=== PATIENT | male | born 1970 | race Caucasian/White ===

== ENCOUNTER → 2017-01-29 | Outpatient (CLI) | payer OTHER ==
[~2017-01-29] MED LIST: SERT50TA PO
[2017-01-29 17:41] LABS: BASO % 0.1 %; BASO ABS # 0.01 K/uL (0-0.2); COMPLETE YES; EOS % 1.4 %; HEMATOCRIT 43.7 % (42-52); IG% 0.2 %; LYMPH % 18.6 %; LYMPH ABS # 1.83 K/uL (1.2-3.4); MEAN CELL VOLUME 79.9 fL (80-100); MEAN CORPUSCULAR HEMOGLOBIN 28.7 pg (25-34); MEAN CORPUSCULAR HGB CONC 35.9 g/dl (32-36); MEAN PLATELET VOLUME 9.8 fL (7.4-10.4); MONO % 7.9 %; NEUT % 71.8 %; PLATELET COUNT 222 K/uL (130-400); RED BLOOD COUNT 5.47 M/uL (4.7-6.1); WHITE BLOOD COUNT 9.85 K/uL (4.8-10.8)
== END | disposition home or self-care (01) ==
LOC: C.LABPVFM 14:45
PROVIDERS: ATTEND Nurse Practitioner
DX: M25.572 Pain in left ankle and joints of left foot (principal)

== ENCOUNTER → 2017-05-06 | Outpatient (CLI) | payer OTHER ==
[2017-05-06 13:02] LABS: BLOOD UREA NITROGEN 15 mg/dl (7-18); BUN/CREATININE RATIO 12.1 (10-20); CALCIUM 9.1 mg/dl (8.5-10.1); CARBON DIOXIDE 27 mmol/L (21-32); CHLORIDE 110 mmol/L (98-107); GLUCOSE 102 mg/dl (70-99); POTASSIUM 4.4 mmol/L (3.5-5.1); SODIUM 142 mmol/L (136-145)
[2017-05-06 13:05] LABS: CHOLESTEROL 146 mg/dl (0-200); CHOLESTEROL/HDL RATIO 2.9; HDL CHOLESTEROL 50 mg/dl; LDL CHOLESTEROL CALCULATED 71 mg/dl; TRIGLYCERIDES 126 mg/dl (0-150); VERY LOW DENSITY LIPOPROT CALC 25 mg/dl
== END | disposition home or self-care (01) ==
LOC: C.LABPVFM 09:36
PROVIDERS: ATTEND Nurse Practitioner
DX: I10 Essential (primary) hypertension (principal)

== ENCOUNTER → 2017-06-03 | Outpatient (CLI) | payer OTHER | END | disposition home or self-care (01) | LOC: C.LABSPEC 16:47 | PROVIDERS: ATTEND Physician Assistant | DX: L30.9 Dermatitis, unspecified (principal) ==

== ENCOUNTER → 2017-08-16 | Outpatient (CLI) | payer OTHER ==
[2017-08-16 13:21] LABS: BLOOD UREA NITROGEN 17 mg/dl (7-18); BUN/CREATININE RATIO 13.5 (10-20); CALCIUM 9.6 mg/dl (8.5-10.1); CARBON DIOXIDE 27 mmol/L (21-32); CHLORIDE 109 mmol/L (98-107); CREATININE 1.24 mg/dl (0.60-1.40); GLUCOSE 105 mg/dl (70-99); SODIUM 144 mmol/L (136-145)
== END | disposition home or self-care (01) ==
LOC: C.LABPVFM 08:50
PROVIDERS: ATTEND Nurse Practitioner Family
DX: I10 Essential (primary) hypertension (principal)

== ENCOUNTER → 2017-08-30 | Outpatient (CLI) | payer OTHER ==
[2017-08-30 13:18] LABS: ESTIMATED AVERAGE GLUCOSE 97 mg/dl; HA1C FLAG Normal (Normal)
[2017-08-30 13:54] LABS: BLOOD UREA NITROGEN 15 mg/dl (7-18); BUN/CREATININE RATIO 12.7 (10-20); CALCIUM 9.9 mg/dl (8.5-10.1); CARBON DIOXIDE 25 mmol/L (21-32); CHLORIDE 105 mmol/L (98-107); CREATININE 1.14 mg/dl (0.60-1.40); GLUCOSE 120 mg/dl (70-99); POTASSIUM 4.3 mmol/L (3.5-5.1); SODIUM 142 mmol/L (136-145)
== END | disposition home or self-care (01) ==
LOC: C.LABPVFM 08:23
PROVIDERS: ATTEND Nurse Practitioner Family
DX: I10 Essential (primary) hypertension (principal)

== ENCOUNTER → 2017-12-03 | Outpatient (CLI) | payer OTHER ==
[2017-12-03 12:53] LABS: ALBUMIN 3.9 gm/dl (3.4-5.0); BLOOD UREA NITROGEN 19 mg/dl (7-18); CALCIUM 9.6 mg/dl (8.5-10.1); CARBON DIOXIDE 30 mmol/L (21-32); CREATININE 1.31 mg/dl (0.60-1.40); GLUCOSE 102 mg/dl (70-99); SODIUM 138 mmol/L (136-145)
[2017-12-03 12:54] LABS: PHOSPHORUS 2.7 mg/dl (2.5-4.9)
== END | disposition home or self-care (01) ==
LOC: C.LABPVFM 08:58
PROVIDERS: ATTEND Internal Medicine Nephrology
DX: I10 Essential (primary) hypertension (principal)

== ENCOUNTER 2024-10-06 05:09 | Observation (INO) ==
--- NOTE | 2024-09-07 15:50 | PAT Medication Instructions ---
Medication Instructions Date of Service September 07, 2024 Home Medications Medication Instructions Recorded losartan 100 1 tab PO QAM #90 tabs 03/09/24 mg-hydrochlorothiazide 25 mg tablet bisoprolol fumarate 5 mg tablet 5 mg PO QAM #90 tabs 04/12/24 losartan 100 mg-hydrochlorothiazide 25 mg tablet 1 tab PO QAM bisoprolol fumarate 5 mg tablet 5 mg PO QAM allopurinol 100 mg tablet 100 mg PO QAM DO NOT take the morning of surgery losartan 100 mg-hydrochlorothiazide 25 mg tablet 1 tab PO QAM Take morning of surgery With a small sip of water, OTHERWISE NOTHING TO EAT OR DRINK AFTER MIDNIGHT: bisoprolol fumarate 5 mg tablet 5 mg PO QAM allopurinol 100 mg tablet 100 mg PO QAM Other Notes If you have any questions please call us at [phone] or [phone] or [phone] or [phone]
--- NOTE | 2024-09-18 10:13 | Anesthesiology Consultation ---
Date of Service September 18, 2024 Assessment & Plan (1) Encounter for pre-operative examination: - Infectious disease screening: Per assessment on 09/18/24- No known recent infectious disease contacts or current infectious disease symptoms. - Outpatient joint assessment: Pt currently scheduled for inpatient pathway. If surgeon requests review for outpatient joint pathway, patient is an acceptable candidate for outpatient joint program from anesthesia standpoint pending surgeon's office assessment that patient is motivated, has good support and completes [facility] preop requirements. - Check BSG DOS (Preop labs note elevated glucose at 168. No reported hx of diabetes/prediabetes by patient. Last A1C 09/16/23 was 5.5%. Will update BSG DOS) - Nephrology visit (09/19/24): "Colten Farley is a 53 year-old male with hypertension, predominately diastolic, stage II hypertension. He has a normal serum creatinine. Risk factors include a history of mild EMILIANO, OA/DJD-msk pain and stress. He has a history of gout. Symptoms controlled with prophylactic allopurinol. After prior discussion regarding blood pressure guidelines from the [facility] as well as AHA/ACC recommendations, a reasonable goal of <130/80 mmHg was established. He is tolerating current therapy well. BP slightly elevated in clinic but better at home. Discussed options for switching bisoprolol to metoprolol or carvedilol or increasing the dose. Volume status acceptable. Advised to monitor at home. Requested follow up if home readings are not controlled. Colten will continue 25 mg HCTZ in addition to Losartan 100 mg. He has been tolerating the medication well. Bisoprolol will be continued at 5 mg daily. No changes today. Home monitoring encouraged. Update renal profile in 6 months. There is no recent evaluation for LVH. EKG in 2018 demonstrated NSR with QTc 498. Screening for proteinuria completed today was negative. Aspirin 81 mg daily may also be considered for risk factor modification. RTC in 6 months." Chart Review Chart Review: Acceptable Risk for Surgery and Patient seen in Pre Admission Testing Teaching & Discussion Pre-Anesthesia Teaching/Discussion Notes: Instructed NPO after midnight before surgery,except medications with 15 cc of water. Medication instructions provided according to the PAT guidelines. History Surgery Operation Date: 10/06/24 10:40 Proposed Procedures p Left Total Hip Arthroplasty - Solitario Kim MD Height/Weight Height: 5 ft 11 in Weight: 102.6 kg Allergies Allergy/AdvReac Type Severity Reaction Status Date / Time Calcium Channel Blocking Allergy Severe leg Verified 09/07/24 07:55 Agent Dilt swellling Iodinated Contrast Media Allergy Intermediate Hives Verified 09/07/24 07:55 aspirin Allergy Mild childhood Verified 09/07/24 07:55 - pt unsure Medications Home Medications Medication Instructions Recorded Confirmed Last Taken losartan 100 1 tab PO QAM #90 tabs 03/09/24 09/19/24 Unknown mg-hydrochlorothiazide 25 mg tablet bisoprolol fumarate 5 mg tablet 5 mg PO QAM #90 tabs 04/12/24 09/19/24 Unknown allopurinol 100 mg tablet 100 mg PO QAM 09/07/24 09/19/24 Unknown Wheeled Walker #1 ea 09/18/24 09/19/24 Unknown Past Medical History Medical History Arthritis of left hip Benign essential hypertension Degenerative arthritis of knee, bilateral Degenerative joint disease of left hip History of asthma No recent issues, no current inhaler History of COVID-19 (05/2023) "Cold symptoms" > resolved Hx of colonic polyps Hx of gout Spinal stenosis Lumbar Exercise / Class Metabolic Activity II 4-5 Yardwork/Stairs/Walk up hill (one FS: no CP, no SOB) Past Family History Family History Other No family history of adverse response to anesthesia Denies family history of Ovarian cancer Prostate cancer Diabetes Myocardial infarction Breast cancer Congenital kidney disease Colorectal cancer Hypertension Past Surgical History Surgical History History of nasal septoplasty Age 17 Hx of colonoscopy with polypectomy Colonoscopy, [facility] (12/16/23) [place] teeth extracted Past Anesthesia History No Hx of Anesthesia Complications and No Family Hx of Anesthesia Complications History of PONV No Hx of PONV and No Hx of Motion Sickness Social History Smoking Status: Never smoker Do You Dip or Chew Tobacco: No Hx Alcohol Use: Yes Alcohol type: beer and hard liquor alcohol intake frequency: a few times a week Hx Substance Use: No substance use type: does not use Last Used Substance Other:: marijuana - '- no longer uses Review of Systems Patient denies chest pain, shortness of breath, dyspnea on exertion, fever, c hills, cough, wheezing. Physical Exam Vital Signs BP 125/84 P 67 TEMP 97.7 SP02 96%RA RESP 16 Physical Full cervical extension range of motion. Full TMJ range of motion. TMD > 3.5 finger breaths Mallampati Score II Dentition: intact Lungs: clear throughout to auscultation Cardiac: regular rate and rhythm, no murmurs noted Spine: normal Carotid arteries: negative bruit Extremities: no LE edema Lab Results Anesthesia Preop Results Results Anesthesia Widget: WBC 6.21 K/ul (4.8-10.8) 09/18/24 Hgb 16.6 g/dl (14.0-18.0) 09/18/24 Hct 47.8 % (42.0-52.0) 09/18/24 Plt 214 K/uL (130-400) 09/18/24 Na 137 mmol/L (136-145) 09/18/24 K 3.6 mmol/L (3.5-5.1) 09/18/24 Cl 101 mmol/L (98-107) 09/18/24 CO2 31 mmol/L (21-32) 09/18/24 BUN 19 mg/dl (6-23) 09/18/24 Creat 1.20 mg/dl (0.6-1.4) 09/18/24 Glucose Level 168 mg/dl (70-99(Fasting)) H 09/18/24 PT 11.0 Seconds (9.0-12.0) 09/18/24 PTT 25 Seconds (21-31) 09/18/24 INR 1.0 (0.9-1.1) 09/18/24 Blood Type AB Positive 09/18/24 Antibody Screen NEGATIVE 09/18/24 Testing Electrocardiogram Date: 09/18/24 NSR at 66bpm. "Normal ECG" Chest X-Ray Date: 09/18/24 FINDINGS: The lungs are clear. Cardiomediastinal silhouette is within normal limits. No acute osseous abnormalities. No pleural effusion or pneumothorax. IMPRESSION: No acute cardiopulmonary findings.
[2024-10-06] MEDS: LR 500ML BOLUS, THEN 15ML/HR IV SCH (05:40)
[2024-10-06] MEDS: FAMOTIDINE 20 MG TAB PO SCH (05:43)
[2024-10-06] MEDS: ACETAMINOPHEN 500 MG TAB PO SCH ×2 (05:43→12:04)
[2024-10-06] MEDS: dexAMETHasone**PF** 10 MG/ML VIAL IV SCH (05:43)
[2024-10-06] MEDS: METOCLOPRAMIDE HCL 10 MG TABLET PO SCH (05:43)
[2024-10-06] MEDS: LR 60ML/HR IV SCH (05:46)
[2024-10-06] MEDS: CeleBREX 200 MG CAP PO SCH (05:46)
[2024-10-06] MEDS ORDERED: PROPOFOL IV EMULSION 10 MG/ML 100 ML VIAL IV ONE (06:05)
[2024-10-06] MEDS ORDERED: ONDANSETRON INJ 2 MG/ML 2 ML VIAL ONE (06:05)
[2024-10-06] MEDS ORDERED: fentaNYL citrate PF 100 MCG/2 ML VIAL ONE (06:06)
[2024-10-06] MEDS ORDERED: MIDAZOLAM HCL 1 MG/ML 2ML VIAL ONE ×2 (06:06→08:19)
[2024-10-06] MEDS ORDERED: KETAMINE HCL 10MG/ML SYR ONE (06:09)
[2024-10-06] MEDS ORDERED: BUPIVACAINE 0.5 % 5 MG/1 ML PF 10ML VIAL ONE (06:27)
[2024-10-06] MEDS: TRANEXAMIC ACID 1,000 MG **IV Pre-op IV SCH (06:46)
--- NOTE | 2024-10-06 06:52 | History & Physical Bridge Note ---
Date of Service October 06, 2024 History & Physical Bridge Note I have examined the patient, reviewed the History & Physical and in the interval since the performance of the History & Physical I have noted the following changes of clinical significance: no changes noted
[2024-10-06] MEDS: ceFAZolin 2000MG 2,000 MG/15 ML SYR IV SCH ×2 (07:00→15:00)
[2024-10-06] MEDS: BUPIVACAINE/EPINEPHRINE 0.5% MPF 1:200,000 30 ML VIAL ONE (07:34)
[2024-10-06] MEDS ORDERED: ePHEDrine sulfate 50 MG/5 ML SYR ONE (07:39)
[2024-10-06] MEDS ORDERED: PHENYLEPHRINE 100MCG/ML 5ML SYR ONE ×3 (07:39)
[2024-10-06] MEDS ORDERED: ALBUMIN HUMAN 5% 12.5 GM/250 ML VIAL IV ONE (07:39)
[2024-10-06] MEDS ORDERED: PHENYLEPHRINE HCL 10 MG/ML VIAL ONE (07:50)
[2024-10-06] MEDS: THROMBIN 5000 UNITS KIT ONE (08:18)
[2024-10-06] MEDS: GELATIN SPONGE 12-7MM ONE (08:18)
[2024-10-06] MEDS ORDERED: ONDANSETRON INJ 2 MG/ML 2 ML VIAL IV PRN ×2 (08:20→10:44)
[2024-10-06] MEDS ORDERED: ePHEDrine sulfate 50 MG/ML AMP IV PRN (08:20)
[2024-10-06] MEDS ORDERED: fentaNYL citrate PF 100 MCG/2 ML VIAL IV PRN (08:20)
[2024-10-06] MEDS ORDERED: ATROPINE SULFATE 0.1 MG/ML 10ML SYR IV PRN (08:20)
[2024-10-06] MEDS ORDERED: HYDROmorphone INJ 2 MG/ML SYR/VIAL IV PRN (08:20)
[2024-10-06] MEDS ORDERED: PROMETHAZINE HCL 6.25 MG in SODIUM CHLORIDE 0.9% 50 ML IV PRN (08:20)
--- NOTE | 2024-10-06 08:45 | Operative Report ---
PG Post Operative Report Pre & Post Diagnosis Operation Date: 10/06/24 07:00 Pre-Op Diagnosis: Left Hip Osteoarthritis Post-Op Diagnosis: Left Hip Osteoarthritis I identified the patient and participated in the time-out.: Yes Procedure Operation Date: 10/06/24 07:00 Actual Procedures p Left Total Hip Arthroplasty(Left) - Solitario Kim MD Surgeon Solitario Kim MD Weed Burner Tucker Ward PA-C Estimated Blood Loss 250 Findings Consistent with Post-Op Diagnosis Operative findings were advanced left hip DJD. He had grade 4 [id number] disease the femoral head and acetabulum. A not much in way of osteophytes. Moderate-sized hip joint effusion. Specimens Left femoral head sent for pathology. Anesthesia Type Spinal MAC Complications none Disposition Accompanied Patient To Recovery: No Indications The patient is a 53-year-old gentleman was had a several year history of increasing left hip pain discomfort is gradually gotten worse over time. He is been through extensive conservative care which became less successful. X-ray shows a moderate to advanced hip arthritis. He also had cam type impingement. He elected proceed with surgical treatment. Description of Procedure Operative implants consists of: 1 Biomet G7 size 54 mm acetabular shell. 2. [place] hole eliminator. 3. 6.5 cancellous acetabular screws 1 of 20 mm in length and 1 of 35 mm length. 4. Highly cross-linked polyethylene liner with a 54 mm outer diameter and 36 mm inner diameter. 5. DePuy Karaya size 10 KLA femoral stem. 6. +8.5/36 mm ceramic articular ball. The patient was taken the operating, identified, placed on the operating table in the supine position. All conductors were appropriately padded. IV antibiotics fibra anesthesia team. A spinal anesthetic had been implemented holding area. The patient was then placed in the right lateral decubitus position. A Stulberg hip positioner was used for positioning. The left hip and leg were then prepped and draped in usual sterile fashion. A posterolateral approach to the left hip was then performed to a curvilinear incision centered over the greater trochanter. Sharp dissection Through subcutaneous tissue dental of the IT band gluteal fascia. The IT band gluteal fascia incised longitudinally in line with skin incision. The underlying greater bursa was excised. The piriformis and external rotators along with the posterior hip joint capsule then released in the posterior aspect the hip as a single layer. The hip was internally rotated and dislocated. A femoral neck osteotomy cut was made with Final Cut about 22 mm above the lesser trochanter. Femoral head was removed and sent for pathology. The femur was retracted anteriorly. Attention drawn the acetabulum. The acetabular labrum was excised. The pulmonary fat was excised. Sequential reaming the acetabulum was then performed with a size 43 and progressing up to 53. I reamed a little bit with a 54 reamer and then placed a 54 mm Biomet acetabular cup in about 4 degrees lateral opening and 20 degrees of anteversion. It was fixed with two 6.5 screws. A trial liner was placed. Attention drawn the femur. The proximal femur was entered with a [employer] cutter followed by canal finder. I then broached beginning with size 8 and progressing up to a 10. We got excellent fit is 10. I did not think there is any way I can get any bigger implant in. We then trialed the hip. The +5 articular ball seemed to recreate soft tissue tension appropriately instability but this still seems a little bit short. Therefore we elected to use a +8.5 articular ball. The hip was fully stable. We elect to place these implants. After impacting the stem there was some bleeding in the inferior aspect of the acetabular area in the soft tissues. We spent 5 to 10 minutes coagulating this and then I did use a little bit of thrombin-soaked Gelfoam and some pressure for about 5 minutes to maintain and establish good hemostasis. He was clearly just 1 localized venous bleeder. We elected then to proceed with placing the permanent implants. All trial implants were removed. An apex hole dead mail checker was placed. Highly cross-linked polyethylene liner was placed. A size 10 KLA femoral stem was impacted in position. +8.5/36 mm ceramic articular ball was placed. Hip was located and once again found to be stable. Attention was then drawn toward closing. The wounds irrigated coconuts pulsatile lavage solution. I did inject locally with 60 cc of half percent Marcaine with epinephrine. The posterior capsular extra rotators then repaired through drill holes in the posterior trochanter with #2 Tycron suture. The IT band gluteal fascia then closed in 1 PDS suture running fashion with subcutaneous tissues then closed in 2 layers with a deep layer #1 Vicryl suture in the more superficial layer with with 2 Dexon suture in a buried interrupted fashion. Skin was closed with skin robyn. Leg was then cleaned and dried a sterile dressing with Xeroform, 4 fours, ABD pad and foam tape was applied. Patient then transferred to the recovery room in stable condition. Patient tolerated procedure well and there were no complications. Tucker Ward, my physician lpn medical assistant, was present for the entire procedure. His assistance was essential and required for appropriate patient positioning, prepping and draping, surgical exposure, performing the technical details of the operation, placement the implants, closure of the wound, and placement of the sterile bandage. I attest to the content of the Intraoperative Record and any orders documented therein. Any exceptions are noted below.
--- NOTE | 2024-10-06 09:11 | XRay Report ---
XR hip 1V LT w pelvis HISTORY: 53 years-old Male IN PACU - Post Surgical left hip arthroplasty COMPARISON: 08/03/2024 TECHNIQUE: AP view of the pelvis with crosstable lateral view of the right hip FINDINGS: Surgical clips of the scrotum. Mild to moderate osteoarthritis of the right hip. Left hip arthroplast y demonstrates satisfactory alignment with overlying skin robyn, expected postoperative swelling wi th deep tissue air. IMPRESSION: Satisfactory alignment of the left hip arthroplasty. ACT 112: Negative or not required by law. The above report was generated using voice recognition software. It may contain grammatical, syntax o r spelling errors. Electronically signed by: Lauro Streeter M.D. 10/06/2024 9:10 AM
--- NOTE | 2024-10-06 10:23 | Anesthesiology Progress Note ---
Date of Service October 06, 2024 Anesthesia Post Procedure Vital Signs Vital Signs: Temp Pulse Pulse Resp BP Pulse Ox O2 Del Method 10/06/24 10:05 94 H 16 117/72 94 Room Air 10/06/24 09:55 93 H 16 110/75 92 Room Air 10/06/24 09:45 92 H 16 109/77 92 Room Air 10/06/24 09:35 97 H 16 101/66 92 Room Air 10/06/24 09:25 94 H 17 104/74 93 Room Air 10/06/24 09:15 96 H 16 110/69 95 Room Air 10/06/24 09:05 94 H 16 109/66 95 Room Air 10/06/24 08:55 93 H 17 114/67 93 Room Air 10/06/24 08:45 93 H 20 100/63 97 Room Air 10/06/24 08:36 36.0 C L 83 13 172/102 H 96 Room Air 10/06/24 05:37 36.6 C 82 20 158/104 H 96 Room Air Transfer of Care Handoff Completed per policy Notes Mental Status: alert / awake / arousable and participated in evaluation Patient Amnestic to Procedure: Yes Nausea / Vomiting: adequately controlled Pain: adequately controlled Airway Patency, RR, SpO2: stable & adequate BP & HR: stable & adequate Hydration State: stable & adequate Anesthetic Complications: no major complications apparent
[2024-10-06] MEDS ORDERED: METOCLOPRAMIDE HCL INJ 5 MG/ML 2 ML VIAL IV PRN (10:44)
[2024-10-06] MEDS ORDERED: TAMSULOSIN HCL 0.4 MG CAP PO PRN (10:44)
[2024-10-06] MEDS ORDERED: MAGNESIUM HYDROXIDE SUSP 30 ML UDC PO PRN (10:44)
[2024-10-06] MEDS ORDERED: HYDROmorphone INJ 0.5 MG/0.5 ML SYR IV PRN (10:44)
[2024-10-06] MEDS ORDERED: bisacodyL 10 MG SUPP PR PRN (10:44)
[2024-10-06] MEDS ORDERED: NALOXONE HCL 0.4 MG/1 ML VIAL/CARP IV PRN (10:44)
[2024-10-06] MEDS ORDERED: diphenhydrAMINE Capsule 25 MG CAP PO PRN (10:44)
[2024-10-06] MEDS ORDERED: ALUMINUM/MAGNESIUM SUSP 30 ML UDC PO PRN (10:44)
[2024-10-06] MEDS ORDERED: traMADol HCL 50 MG TABLET PO PRN (10:44)
[2024-10-06] MEDS: SENNA 8.6 MG TAB PO SCH ×2 (12:04→20:16)
[2024-10-06] MEDS: KETOROLAC 30 MG/ML VIAL IV SCH (12:04)
[2024-10-06] MEDS: DOCUSATE SODIUM 100 MG CAP PO SCH (12:04)
[2024-10-06] MEDS: allopurinoL 100 MG TAB PO SCH (12:05)
[2024-10-06] MEDS: BISOPROLOL FUMARATE 5 MG TAB PO SCH (12:05)
[2024-10-06] MEDS: LOSARTAN/HCTZ 50/12.5MG TAB PO SCH (12:05)
[2024-10-06] MEDS: MULTIVITAMIN TAB PO SCH (12:05)
[2024-10-06] MEDS: ASPIRIN 81 MG ECTAB PO SCH (13:33)
[2024-10-06 13:38] VITALS: RESP 16
[2024-10-06] MEDS: TRANEXAMIC ACID / 0.7% NACL 1,000 MG/100 ML BAG IV SCH (15:00)
[2024-10-06] MEDS: ASCORBIC ACID 500 MG TAB PO SCH (16:51)
[2024-10-07 06:04] LABS: Basophils # (auto) 0.03 K/uL (0.00-0.20); Basophils % (auto) 0.2 %; Eosinophils # (auto) 0.01 K/uL (0.00-0.50); Eosinophils % (auto) 0.1 %; Hematocrit (blood only) 38.4 % (42.0-52.0); Hemoglobin 13.4 g/dl (14.0-18.0); Immature Granulocytes # (auto) 0.09 K/uL (0.01-0.20); Immature Granulocytes % (auto) 0.5 %; Lymphocytes % (auto) 6.9 %; Mean Corpuscular Hemoglobin 28.3 pg (25.0-34.0); Mean Corpuscular Hgb Conc 34.9 g/dL (32.0-36.0); Mean Platelet Volume 9.3 fL (9.4-12.4); Monocytes # (auto) 0.92 K/uL (0.11-0.59); Monocytes % (auto) 4.9 %; Neutrophils # (auto) 16.52 K/uL (1.40-6.50); Neutrophils % (auto) 87.4 %; Platelet Count 183 K/uL (130-400); RDW Coefficient of Variation 12.6 % (11.5-14.5); RDW Standard Deviation 36.2 fL (36.4-46.3); Red Blood Count 4.74 M/uL (4.70-6.10); White Blood Count 18.87 K/ul (4.8-10.8)
[2024-10-07 06:16] LABS: BUN Creatinine Ratio 18.9 (10-20); Calcium 8.9 mg/dl (8.6-10.3); Creatinine Clr Calc Pharmacy 87.2 ml/min; Potassium 4.3 mmol/L (3.5-5.1)
--- NOTE | 2024-10-07 07:34 | Orthopedic Progress Note ---
Date of Service October 07, 2024 Assessment & Plan (1) Status post left hip replacement: Plan: 53-year-old male postop day 1 from left hip replacement he is doing pretty well. Pains controlled. Hips located. He is neurologically intact. Plan: 1. DVT prophylaxis including thigh-high teds, SCDs, aspirin twice a day. 2. PT/OT. Weight-bear as tolerated. Left total hip protocol. 3. Pain control doing well with current pain regimen. 4. Disposition. Plan is to discharge to home with some home health later today if he does okay in therapy. Admission and Anticipated Discharge Date Admission Date: October 06, 2024 Subjective 53-year-old gentleman postop day 1 from a total hip replacement. He is doing pretty well. Had a pretty good night. Pains controlled. Had awakened this morning. Denies any chest pain or shortness of breath. Not feeling dizzy or lightheaded. Physical Exam Physical Exam: Physical examination was a pleasant middle-age male. I did wake him this morning. Examination of left hip and leg reveals the dressing be clean dry and intact. Leg lengths are equal. Her thigh is soft and supple. He is neurologically intact. Respiratory: normal respiratory effort, lungs clear to auscultation Cardiovascular: RRR, no murmur, no edema Gastrointestinal (Abdomen): normal bowel sounds, soft, nontender, no hepatosplenomegaly Results & Data Vital Signs (Past 12 Hours) Vital Signs Temp Pulse Resp BP Pulse Ox O2 Del Method 10/07/24 03:43 36.4 C L 75 16 127/74 96 Room Air 10/06/24 23:11 36.6 C 86 16 128/80 94 Room Air 10/06/24 19:38 36.7 C 83 16 147/87 H 94 Room Air Laboratory Results Hemoglobin is 13.4. Hematocrit 38.4. Electrolytes are stable.
[2024-10-07 08:05] VITALS: BP 159/80; PULSE 74; TEMP 97.9; O2SAT 97
[2024-10-07] MEDS: dexAMETHasone 10 MG in SYRINGE 0 ML IV SCH ×2 (10:07→10:29)
--- NOTE | 2024-10-10 09:01 | Discharge Summary ---
Date of Service October 10, 2024 Principal Diagnosis Same as "Discharge Diagnosis" noted below under Discharge Instructions. Discharge Data Procedures Performed Operation Date: 10/06/24 07:00 Actual Procedures p Left Total Hip Arthroplasty(Left) - Solitario Kim MD Hospital Course (1) Status post left hip replacement: This is a 53 year old patient admitted on 10/06/24 and underwent total hip arthroplasty. He tolerated the procedure well and there were no complications. Transferred to the PACU post op and later to the orthopedic floor for further care. He was given ancef for antibiotic prophylaxis. He was also given CORBIN stockings, SCDs, and aspirin for DVT prophylaxis. Hemoglobin, hematocrit, and vital signs were monitored during his hospital stay and remained stable. Did not require any blood transfusions. There were no complications during his hospital stay. By post op day #1 the patient was tolerating a regular diet, pain was reasonably controlled with oral pain medicine, and he was participating in physical therapy. On post op day #1 the patient was discharged home and set up with home health care. He was given printed discharge instructions including prescriptions for extra strength tylenol, aspirin, ketorolac, zofran, senokot, and tramadol. Continue hip precautions. Continue physical therapy, weight bearing as t olerated. Continue CORBIN stockings. Follow up approximately 2 weeks post op or sooner if there are problems or concerns. PG Care Time/CCT Total # of Minutes Spent Total Time Spent with Patient: : Discharge Plan Discharge Items Patient Disposition: Home - Home Health Services Reason For Visit: Left Hip Osteoarthritis Discharge Diagnosis: Left Hip Replacement Activity: Per Instructions section Activity Comment: Follow/Obey hip precautions at all times. Weightbearing: Full weightbearing Weightbearing Comment: Weightbear as tolerated obeying hip precautions at all times. Non-emergency contact: Surgeon Call non-emergency contact if: you have any medication questions Follow-up/Referrals: PCP,NO [Physician] - Diet: Regular Addtl Attending Provider Instructions: ACTIVITY RECOMMENDATIONS: Diet: * You may resume previous diet. Physical Therapy: * Aggressive physical therapy is not usually needed. You will learn to take care of yourself safely and walk. * Follow the "Hip Precautions Instructions." * In some cases, the social media marketing analyst at the hospital will arrange to have a therapist come to your house for the first couple of weeks to help you learn these skills. * You need to practice on your own or with the help of a family member as needed. * When you learn these skills, most of the therapy can be done on your own. Home Exercise: * You were shown a series of exercises in the hospital. Do these exercises three to four times each day including the exercises you were shown in physical therapy. Walking: * Get up and walk several times each day. For the first four weeks, try not to stand or walk for more than one hour at a time. If you do stand or walk for more than one hour, you will not hurt anything, but your leg will likely swell. * As you feel comfortable, you may change from the walker or crutches to a cane and then to independent walking. MEDICATIONS: New Medicine: * You will likely be taking one or more of these medicines: 1. Tramadol - Take, as directed, when you need it, every six hours to control your pain. 2. Aspirin - Thins your blood to lessen the chance of forming a blood clot. * The most common side effects of pain medicine and iron are nausea and constipation. If nausea or constipation is too much of a problem or if you have any questions about your new medicines or doses, call [facility] at . We will try to help you manage these issues. "VERY IMPORTANT TO READ AND REVIEW" Pain: * The immediate post-operative period after hip replacement surgery is often quite painful. * You are given a prescription for pain medicine. You should take it, as directed, when you need it, especially before physical therapy and before going to bed. Pain that interferes with sleep is very common and can last several months. * You will likely need pain medicine for the first two to four weeks. It will not stop all of the pain. The pain will lessen and as you feel better, you may change to milder pain medicine such as Tylenol. * The most common side effects of pain medicine are nausea and constipation, so don't take more than you need. SPECIAL CARE INSTRUCTIONS: TEDs/Elastic Stockings: * The white elastic stockings help limit swelling and prevent blood clots from forming in your legs. The more you wear them, the more they work. * Wear them for six weeks. Incision Site Care: * Remove dressing postoperative day 2 and then shower. Keep direct shower pressure off the incision site. * After showering, cover robyn with dry gauze and change daily or more frequently if the dressing is getting saturated with drainage. * May completely stop using bandage if wound is dry and no drainage * Robyn are removed between 2 and 3 weeks post-op. If your follow-up appointment is made before 2 weeks, please have your appointment re- scheduled. It is too early to remove the robyn. Prevention of Infection: * Take antibiotics one hour before any dental cleaning, dental work, urological procedure, gastrointestinal procedure or any invasive surgery in order to prevent your new joint from getting infected. * You may get the antibiotics from the doctor performing the procedure or you may call our office at before and we will call in a prescription to the pharmacy of your choice. Things to Watch For: * Drainage from the incision site that occurs more than one week after your surgery. * Severely increased leg pain or swelling. * Increased redness at the incision site. * Fever above 102 degrees Fahrenheit. * Unusual chest pain or shortness of breath. * Unusual pain or burning with urination. Call [facility] at with any of the above problems or if you have any questions about your medicines or recovery. FOLLOW UP VISIT: Make an appointment to see your doctor for approximately two weeks after surgery for a progress check and staple removal by calling the office at . Pending Studies at Discharge: No Stand-Alone Forms: My [facility], Pain - Opioid Pain Management, Smoking Cessation Medications and DC Order Prescriptions: Continued losartan-hydrochlorothiazide 100-25 mg tablet 1 tab PO QAM Qty: 90 3RF bisoprolol fumarate 5 mg tablet 5 mg PO QAM Qty: 90 3RF tramadol 50 mg tablet 50 - 100 mg PO Q6 PRN (Reason: pain) Qty: 40 0RF Rx Instructions: Take as needed for pain ondansetron 4 mg tablet,disintegrating 4 mg PO Q8 PRN (Reason: nausea) Qty: 20 1RF Rx Instructions: Take as needed for nausea ketorolac 10 mg tablet 10 mg PO Q6 5 Days Qty: 20 0RF Rx Instructions: Take 4 times per day with food for 5 days to lessen pain and swelling. sennosides [Senokot] 8.6 mg tablet 8.6 mg PO BID 14 Days Qty: 28 0RF Rx Instructions: Take two times a day to prevent/treat constipation acetaminophen [Tylenol Extra Strength] 500 mg tablet 1,000 mg PO TID 30 Days Qty: 180 0RF Rx Instructions: Take 3 times per day to lessen pain. aspirin [Dieter Low Dose Aspirin] 81 mg tablet,delayed release (DR/EC) 81 mg PO BID 45 Days Qty: 90 0RF Rx Instructions: Take to prevent blood clots. (DME) [employer] Walker Misc See Rx Instructions .MEDSUPPLY Qty: 1 0RF Rx Instructions: As directed allopurinol 100 mg tablet 100 mg PO QAM Rx Instructions: TAKE 1 TABLET DAILY Krames/Other Patient Handouts: DVT Post Op Prevention Admission Data Admit Date/Time: 10/06/24 08:37 Attending Provider: Solitario Kim Admit Provider: Solitario Kim Primary Care Provider: Florecita Garcia Other Providers: [facility] Other Interventions: Discharge Summary Assessment (RN) Last Done: 10/07/24 09:59
== END 2024-10-07 12:19 | disposition home health service (06) ==
LOC: ASU 05:09 → 3E 05:09